=== PATIENT | male | born 1945 | race African-American/Black ===

== ENCOUNTER 2020-11-04 10:21 | Inpatient (IN) | payer MEDICARE, MEDICAID ==
[~2020-11-04] VITALS: Ht 177.8 cm; Wt 80.3 kg
[2020-11-04] MEDS ORDERED: MORPHINE SULFATE 4 MG/ML CPJ (NOT FOR IM USE) IV STA (10:46)
[2020-11-04] MEDS ORDERED: ONDANSETRON HCL 4MG/2ML INJ IV STA (10:46)
[2020-11-04] MEDS ORDERED: SODIUM CHLORIDE 0.9% 1,000 ML IV ONE (11:00)
[2020-11-04 11:33] LABS: MEAN CORPUSCULAR HEMOGLOBIN 33.1 pg (28.0-32.0); MEAN CORPUSCULAR VOLUME 96.6 fL (80.0-94.0); MEAN PLATELET VOLUME 10.4 fl (7.4-10.4); RED BLOOD CELL COUNT 1.99 mill/uL (4.7-6.1); RED CELL DISTRIBUTION WIDTH 16.6 % (11.6-14.6)
[2020-11-04 11:38] LABS: CHLORIDE 124 mEq/L (98-107)
[2020-11-04 11:40] LABS: INR 1.8; PROTHROMBIN TIME 18.3 sec (9.6-11.0)
[2020-11-04 11:51] LABS: HEMATOCRIT. 19.3 % (42.0-52.0); HEMOGLOBIN. 6.6 g/dL (14.0-18.0)
[2020-11-04 11:52] LABS: PLATELET 6 x1000/uL (130-400)
[2020-11-04] MEDS ORDERED: PANTOPRAZOLE SODIUM 40 MG/VIAL IV ONE (12:00)
[2020-11-04 12:34] LABS: NUCLEATED RED BLOOD CELLS 10 /100 WBC
[2020-11-04 12:35] LABS: PLATELET ESTIMATE MARKEDLY DECREASED
[2020-11-04] MEDS ORDERED: LIDOCAINE HCL 1% 20ML VIAL (Pyxis) INJ ONE (12:55)
[2020-11-04] MEDS ORDERED: DIPHENHYDRAMINE 50MG/ML VIAL IV PRN (15:15)
[2020-11-04] MEDS ORDERED: ONDANSETRON HCL 4MG/2ML INJ IV PRN (15:15)
[2020-11-04] MEDS ORDERED: MORPHINE SULFATE 4 MG/ML CPJ (NOT FOR IM USE) IV PRN (15:15)
[2020-11-04] MEDS ORDERED: CEFTRIAXONE 1 G PREMIX 50 ML IV SCH (15:15)
[2020-11-04] MEDS ORDERED: CLONIDINE 0.1MG TABLET PO PRN (15:15)
[2020-11-04] MEDS ORDERED: DEXTROSE 5% WATER 1,000 ML IV SCH (15:15)
[2020-11-04] MEDS ORDERED: NALOXONE HCL 0.4MG/ML VIAL IV PRN (15:30)
[2020-11-04 15:55] LABS: CLARITY URINE TURBID (CLEAR); COLOR URINE DARK YELLOW (YELLOW); KETONES URINE NEGATIVE (NEGATIVE); LEUKOCYTE ESTERASE URINE 3+ (NEGATIVE); NITRITE URINE NEGATIVE (NEGATIVE); OCCULT BLOOD URINE 3+ (NEGATIVE); PH URINE >=9.0 (4.5-8.0); PROTEIN URINE 2+ (NEGATIVE); SPECIFIC GRAVITY URINE 1.012 (1.005-1.030)
[2020-11-04 16:01] LABS: BG BASE EXCESS -14.9 mmol/L (-2.0-2.0); BG CARBOXYHEMOGLOBIN 0.3 % (0.5-1.5); BG DEOXYHEMOGLOBIN 9.2 % (0.0-5.0); BG HCO3 ACT 10.5 mmol/L (22.0-26.0); BG METHEMOGLOBIN 0.4 % (0.0-1.5); BG OXYGEN SATURATION 90.7 % (92.0-98.5); BG OXYHEMOGLOBIN 90.1 % (94.0-97.0); BG PCO2 22.9 mmHg (35.0-45.0); BG PH 7.279 (7.350-7.450); BG PO2 71.8 mmHg (75.0-100.0); BG SAMPLE SITE RIGHT FEMORAL; BG TOTAL HEMOGLOBIN 5.9 g/dL (12.0-18.0); BG VENT MODE ROOM AIR
[2020-11-04] MEDS: CEFTRIAXONE 1,000 MG in DEXTROSE 5% WATER 50 ML IV SCH (16:20)
[2020-11-04] MEDS: AZITHROMYCIN 500 MG in DEXT 5% WATER 250 ML IV SCH (16:25)
[2020-11-04] MEDS ORDERED: SODIUM BICARBONATE 50 MEQ in DEXTROSE 5% WATER 1,000 ML IV SCH (16:30)
[2020-11-04] MEDS ORDERED: NOREPINEPHRINE 32 MG in DEXT 5% WATER 218 ML IV PRN (18:15)
[2020-11-04] MEDS ORDERED: SODIUM CHLORIDE 0.9% 1,000 ML IV NR (18:15)
[2020-11-04 19:54] LABS: HEMATOCRIT 21.8 % (42.0-52.0); HEMOGLOBIN 7.1 g/dL (14.0-18.0)
[2020-11-04] MEDS ORDERED: ALBUTEROL (0.5%) 2.5MG/0.5ML NEB HHN ONE (20:00)
[2020-11-04] MEDS ORDERED: ALBUTEROL (0.083%) 2.5MG/3ML NEB HHN ONE (20:15)
[2020-11-04] MEDS ORDERED: FUROSEMIDE 20MG/2ML VIAL IVP NR (20:45)
[2020-11-04] MEDS: SODIUM BICARBONATE 100 MEQ in DEXTROSE 5% WATER 1,000 ML IV SCH (21:42)
[2020-11-05] MEDS: SODIUM BICARBONATE 100 MEQ in DEXTROSE 5% WATER 1,000 ML IV SCH ×3 (01:34→12:58)
[2020-11-05 04:36] LABS: HEMATOCRIT. 35.6 % (42.0-52.0); HEMOGLOBIN. 11.7 g/dL (14.0-18.0); MEAN CORPUSCULAR HEMOGLOBIN 30.2 pg (28.0-32.0); MEAN CORPUSCULAR VOLUME 92.1 fL (80.0-94.0); MEAN PLATELET VOLUME 10.5 fl (7.4-10.4); RED BLOOD CELL COUNT 3.87 mill/uL (4.7-6.1); RED CELL DISTRIBUTION WIDTH 19.9 % (11.6-14.6)
[2020-11-05 04:47] LABS: CHLORIDE 120 mEq/L (98-107)
[2020-11-05 04:54] LABS: PHOSPHORUS 4.3 mg/dL (2.5-4.9)
[2020-11-05 04:55] LABS: HDL CHOLESTEROL 15 mg/dL (40-59); LDL CHOLESTEROL 16 mg/dL (5-100)
[2020-11-05 04:56] LABS: TOTAL IRON BINDING CAPACITY 123 ug/dL (250-450)
[2020-11-05 05:07] LABS: FOLIC ACID (FOLATE) SERUM > 20.00 ng/mL (>5.38)
[2020-11-05 05:13] LABS: HEPATITIS B SURFACE ANTIGEN NEGATIVE
[2020-11-05 05:43] LABS: HEPATITIS A AB IGM NEGATIVE (NEGATIVE)
[2020-11-05 05:48] LABS: FERRITIN 3922 ng/mL (22-322)
[2020-11-05 05:57] LABS: PLATELET 8 x1000/uL (130-400)
[2020-11-05 11:53] LABS: NUCLEATED RED BLOOD CELLS 4 /100 WBC; PLATELET ESTIMATE MARKEDLY DECREASED
[2020-11-05] MEDS: AZITHROMYCIN 500 MG in DEXT 5% WATER 250 ML IV SCH (16:08)
[2020-11-05 16:59] LABS: HEMATOCRIT 34.5 % (42.0-52.0); HEMOGLOBIN 11.8 g/dL (14.0-18.0)
[2020-11-05] MEDS: CEFTRIAXONE 1,000 MG in DEXTROSE 5% WATER 50 ML IV SCH (17:16)
[2020-11-05 21:41] LABS: HEMATOCRIT 35.7 % (42.0-52.0); HEMOGLOBIN 12.2 g/dL (14.0-18.0)
[2020-11-05 23:27] VITALS: BP 88/59
[2020-11-05 23:30] VITALS: BP 114/61
[2020-11-05 23:45] VITALS: BP 116/54
[2020-11-05] MEDS: DEXTROSE 50% WATER 50ML SYRINGE IV PRN (23:49)
[2020-11-06] VITALS (104 sets, daily range): BP systolic 78–144; BP diastolic 34–99
[2020-11-06] MEDS ORDERED: PHENYLEPHRINE 100 MG in DEXT 5% WATER 240 ML IV PRN (00:30)
[2020-11-06] MEDS: MORPHINE SULFATE 2 MG/ML CPJ (NOT FOR IM USE) IV PRN (01:03)
[2020-11-06] MEDS ORDERED: BLOOD SUGAR DIAGNOSTIC STRIP TEST SCH (04:00)
[2020-11-06] MEDS: PANTOPRAZOLE 80 MG in SODIUM CHLORIDE 0.9% 100 ML IV SCH ×3 (04:05→22:00)
[2020-11-06] MEDS: SODIUM BICARBONATE 100 MEQ in DEXTROSE 5% WATER 1,000 ML IV SCH (04:06)
[2020-11-06] MEDS: DEXTROSE 50% WATER 50ML SYRINGE IV PRN ×3 (04:09→10:07)
[2020-11-06 05:02] LABS: HEMOGLOBIN. 12.7 g/dL (14.0-18.0); MEAN CORPUSCULAR HEMOGLOBIN 29.8 pg (28.0-32.0); MEAN CORPUSCULAR VOLUME 89.2 fL (80.0-94.0); MEAN PLATELET VOLUME 12.1 fl (7.4-10.4); RED BLOOD CELL COUNT 4.26 mill/uL (4.7-6.1); RED CELL DISTRIBUTION WIDTH 20.1 % (11.6-14.6)
[2020-11-06] MEDS: NOREPINEPHRINE 32 MG in DEXT 5% WATER 218 ML IV PRN ×2 (05:04→13:31)
[2020-11-06 05:09] LABS: CHLORIDE 115 mEq/L (98-107)
[2020-11-06] MEDS: IPRATROPIUM/ALBUTEROL 0.5-3(2.5)MG/3ML NEB HHN PRN ×4 (05:19→17:08)
[2020-11-06 05:38] LABS: PLATELET 4 x1000/uL (130-400)
[2020-11-06] MEDS ORDERED: ALBUMIN HUMAN 25GM/100ML (25%) IV SCH (06:45)
[2020-11-06] MEDS: BLOOD SUGAR DIAGNOSTIC STRIP TEST SCH ×6 (07:23→13:16)
[2020-11-06] MEDS ORDERED: WATER IV SCH (07:30)
[2020-11-06] MEDS ORDERED: DEXT 10% IV SCH (07:30)
[2020-11-06] MEDS ORDERED: SODIUM BICARBONATE IV SCH (07:30)
[2020-11-06 10:11] LABS: BG BASE EXCESS -15.3 mmol/L (-2.0-2.0); BG CARBOXYHEMOGLOBIN 0.7 % (0.5-1.5); BG DEOXYHEMOGLOBIN 8.1 % (0.0-5.0); BG FRACTION INSPIRED OXYGEN 32; BG METHEMOGLOBIN 0.3 % (0.0-1.5); BG OXYGEN SATURATION 91.8 % (92.0-98.5); BG OXYHEMOGLOBIN 90.9 % (94.0-97.0); BG PCO2 23.3 mmHg (35.0-45.0); BG PH 7.251 (7.350-7.450); BG PO2 65.8 mmHg (75.0-100.0); BG SAMPLE SITE RIGHT RADIAL; BG TOTAL HEMOGLOBIN 12.8 g/dL (12.0-18.0); BG VENT MODE NASAL CANNULA
[2020-11-06 12:44] LABS: HEMATOCRIT 31.7 % (42.0-52.0); HEMOGLOBIN 10.5 g/dL (14.0-18.0)
[2020-11-06 12:52] LABS: PLATELET ESTIMATE MARKEDLY DECREASED
[2020-11-06 12:53] LABS: NUCLEATED RED BLOOD CELLS 4 /100 WBC
[2020-11-06] MEDS: CEFTRIAXONE 1,000 MG in DEXTROSE 5% WATER 50 ML IV SCH (13:30)
[2020-11-06] MEDS: AZITHROMYCIN 500 MG in DEXT 5% WATER 250 ML IV SCH (13:31)
[2020-11-06] MEDS: SODIUM BICARBONATE 150 MEQ in DEXT 10% WATER 850 ML IV SCH (16:55)
[2020-11-06 19:51] LABS: HEMATOCRIT 30.4 % (42.0-52.0); HEMOGLOBIN 10.6 g/dL (14.0-18.0)
[2020-11-06] MEDS: FILGRASTIM-TBO 300 MCG/0.5 ML SYRINGE SQ SCH (20:51)
[2020-11-07] VITALS (104 sets, daily range): BP systolic 66–156; BP diastolic 23–76
[2020-11-07] MEDS: NOREPINEPHRINE 32 MG in DEXT 5% WATER 218 ML IV PRN ×3 (00:30→23:21)
[2020-11-07] MEDS: IPRATROPIUM/ALBUTEROL 0.5-3(2.5)MG/3ML NEB HHN PRN (01:30)
[2020-11-07] MEDS: MORPHINE SULFATE 2 MG/ML CPJ (NOT FOR IM USE) IV PRN (01:55)
[2020-11-07 05:31] LABS: HEMATOCRIT. 27.2 % (42.0-52.0); HEMOGLOBIN. 9.6 g/dL (14.0-18.0); MEAN CORPUSCULAR HEMOGLOBIN 30.7 pg (28.0-32.0); MEAN CORPUSCULAR VOLUME 87.2 fL (80.0-94.0); MEAN PLATELET VOLUME 8.7 fl (7.4-10.4); RED BLOOD CELL COUNT 3.12 mill/uL (4.7-6.1); RED CELL DISTRIBUTION WIDTH 20.6 % (11.6-14.6)
[2020-11-07 05:50] LABS: CHLORIDE 110 mEq/L (98-107)
[2020-11-07 06:00] LABS: PHOSPHORUS 6.2 mg/dL (2.5-4.9)
[2020-11-07 07:04] LABS: PLATELET 16 x1000/uL (130-400)
[2020-11-07] MEDS: PANTOPRAZOLE 80 MG in SODIUM CHLORIDE 0.9% 100 ML IV SCH ×2 (07:49→17:50)
[2020-11-07] MEDS: SODIUM BICARBONATE 150 MEQ in DEXT 10% WATER 850 ML IV SCH ×3 (08:24→22:23)
[2020-11-07] MEDS ORDERED: MAGNESIUM 2 G PREMIX 50 ML IV SCH (10:00)
[2020-11-07] MEDS: CEFTRIAXONE 1,000 MG in DEXTROSE 5% WATER 50 ML IV SCH (12:12)
[2020-11-07] MEDS: AZITHROMYCIN 500 MG in DEXT 5% WATER 250 ML IV SCH (14:02)
[2020-11-07 17:06] LABS: NUCLEATED RED BLOOD CELLS 1 /100 WBC; PLATELET ESTIMATE MARKEDLY DECREASED
[2020-11-07] MEDS ORDERED: PANTOPRAZOLE SODIUM 40 MG/VIAL IV ONE (17:25)
[2020-11-07] MEDS: FILGRASTIM-TBO 300 MCG/0.5 ML SYRINGE SQ SCH (21:29)
[2020-11-07] MEDS: DEXTROSE 50% WATER 50ML SYRINGE IV PRN (21:30)
[2020-11-08] VITALS (59 sets, daily range): BP systolic 36–141; BP diastolic 18–96
[2020-11-08] MEDS: PANTOPRAZOLE 80 MG in SODIUM CHLORIDE 0.9% 100 ML IV SCH (02:41)
[2020-11-08 06:30] LABS: HEMATOCRIT. 29.2 % (42.0-52.0); HEMOGLOBIN. 10.2 g/dL (14.0-18.0); MEAN CORPUSCULAR HEMOGLOBIN 30.5 pg (28.0-32.0); MEAN CORPUSCULAR VOLUME 87.9 fL (80.0-94.0); MEAN PLATELET VOLUME 10.8 fl (7.4-10.4); RED BLOOD CELL COUNT 3.32 mill/uL (4.7-6.1); RED CELL DISTRIBUTION WIDTH 20.4 % (11.6-14.6)
[2020-11-08 06:33] LABS: PLATELET 4 x1000/uL (130-400)
[2020-11-08 06:37] LABS: CHLORIDE 110 mEq/L (98-107)
[2020-11-08 06:55] LABS: PHOSPHORUS 5.2 mg/dL (2.5-4.9)
[2020-11-08] MEDS: SODIUM BICARBONATE 150 MEQ in DEXT 10% WATER 850 ML IV SCH (07:41)
[2020-11-08] MEDS: NOREPINEPHRINE 32 MG in DEXT 5% WATER 218 ML IV PRN (09:54)
[2020-11-08] MEDS ORDERED: BLOOD SUGAR DIAGNOSTIC STRIP TEST SCH (12:00)
[2020-11-08] MEDS: DEXTROSE 50% WATER 50ML SYRINGE IV PRN (12:51)
[2020-11-08] MEDS: CEFTRIAXONE 1,000 MG in DEXTROSE 5% WATER 50 ML IV SCH (12:51)
[2020-11-08 17:41] LABS: PLATELET ESTIMATE MARKEDLY DECREASED
== END 2020-11-08 15:06 | DRG 871 ==
LOC: ER 10:21 → MICUSO 13:01 → EDBEDREQTM 13:03 → EDBEDREQ 13:03 → MICUNO 11-05 20:27 → 5EST 11-08 09:00
PROVIDERS: ADMIT Internal Medicine; ATTEND Internal Medicine
PROC: 02HV33Z Insertion of Infusion Device into Superior Vena Cava, Percutaneous Approach (ICD-10-PCS; principal; 2020-11-04)
PROC: B548ZZA Ultrasonography of Superior Vena Cava, Guidance (ICD-10-PCS; 2020-11-04)
PROC: 30233N1 Transfusion of Nonautologous Red Blood Cells into Peripheral Vein, Percutaneous Approach (ICD-10-PCS; 2020-11-04)
PROC: 30233R1 Transfusion of Nonautologous Platelets into Peripheral Vein, Percutaneous Approach (ICD-10-PCS; 2020-11-06)
DX: A41.9 Sepsis, unspecified organism (principal); E43 Unspecified severe protein-calorie malnutrition; J18.9 Pneumonia, unspecified organism; K85.90 Acute pancreatitis without necrosis or infection, unspecified; J96.01 Acute respiratory failure with hypoxia; N17.0 Acute kidney failure with tubular necrosis; C18.9 Malignant neoplasm of colon, unspecified; C78.7 Secondary malignant neoplasm of liver and intrahepatic bile duct; D61.818 Other pancytopenia; D68.9 Coagulation defect, unspecified; E87.0 Hyperosmolality and hypernatremia; E87.2 Acidosis; K92.0 Hematemesis; R18.8 Other ascites; D53.9 Nutritional anemia, unspecified; D63.8 Anemia in other chronic diseases classified elsewhere; E16.2 Hypoglycemia, unspecified; E86.0 Dehydration; F20.9 Schizophrenia, unspecified; K74.60 Unspecified cirrhosis of liver; K76.0 Fatty (change of) liver, not elsewhere classified; N18.9 Chronic kidney disease, unspecified; N28.1 Cyst of kidney, acquired; R50.81 Fever presenting with conditions classified elsewhere; Z66 Do not resuscitate; D69.6 Thrombocytopenia, unspecified; L89.156 Pressure-induced deep tissue damage of sacral region; S71.012A Laceration without foreign body, left hip, initial encounter; X58.XXXA Exposure to other specified factors, initial encounter; E87.5 Hyperkalemia; Z20.822 Contact with and (suspected) exposure to COVID-19; T45.1X5A Adverse effect of antineoplastic and immunosuppressive drugs, initial encounter; D70.2 Other drug-induced agranulocytosis; Z82.49 Family history of ischemic heart disease and other diseases of the circulatory system; Z85.038 Personal history of other malignant neoplasm of large intestine; Z85.05 Personal history of malignant neoplasm of liver; Z68.25 Body mass index [BMI] 25.0-25.9, adult; Y93.89 Activity, other specified; Y92.89 Other specified places as the place of occurrence of the external cause; Y99.8 Other external cause status; Z85.048 Personal history of other malignant neoplasm of rectum, rectosigmoid junction, and anus
CPT/HCPCS: 36415; 36430; 36600; 71045; 74176; 76937; 80053; 80061; 80076; 81003; 82248; 82375; 82728; 82746; 82805; 82962; 83036; 83540; 83550; 83605; 83735; 84100; 84134; 84145; 84443; 85014; 85018; 85025; 85044; 85049; 86705; 86709; 86803; 86850; 86900; 86920; 87077; 87186; 87340; 87426; 93005; 93970; 94640; 99291; C1725; C9113; J0456; J0696; J1442; J1940; J2270; J2370; J2405; J3475; J3490; J7030; J7040; J7042; J7050; J7060; J7070; P9016; P9034; P9047